=== PATIENT | female | born 1995 | race African-American/Black ===

== ENCOUNTER 2024-02-22 19:05 | Emergency (ER) | payer MEDICAID ==
[~2024-02-22] VITALS: Ht 165.1 cm; Wt 90.9 kg
[2024-02-22 19:10] VITALS: BP 130/94; PULSE 125; RESP 20; TEMP 98.2; O2SAT 100
[2024-02-22] MEDS ORDERED: IBUP-45 PO (19:16)
[2024-02-22] MEDS: IBUPROFEN 600 MG TABLET PO ONE (21:12)
[2024-02-22] MEDS: CEPHALEXIN MONOHYDRATE 500 MG CAPSULE PO ONE (21:12)
[2024-02-22] MEDS ORDERED: SULF-261 PO (22:43)
[2024-02-22] MEDS: SULFAMETHOX/TRIMETH DS 800-160 MG/TABLET PO ONE (22:47)
== END 2024-02-22 22:56 | disposition home or self-care (01) ==
LOC: EMS 19:05
DX: L73.1 Pseudofolliculitis barbae (principal); L73.9 Follicular disorder, unspecified; J45.909 Unspecified asthma, uncomplicated; F12.90 Cannabis use, unspecified, uncomplicated
CPT/HCPCS: 99284; Z7502; Z7610